=== PATIENT | male | born 1965 | race Caucasian/White ===

== ENCOUNTER 2016-10-05 11:13 | Emergency (ER) | payer OTHER ==
[2016-10-05 11:26] VITALS: TEMP 97.3; O2SAT 96
[2016-10-05] MEDS ORDERED: ONDANSETRON 4 MG/2 ML VIAL ONE (11:33)
--- NOTE | 2016-10-05 11:44 | CPEKG ---
Heart Rate: 36 RR Interval: 1667 P-R Interval: 228 QRSD Interval: 100 QT Interval: 504 QTC Interval: 390 P [place]: 60 QRS [place]: 33 T Wave [place]: 31 EKG Severity - ABNORMAL ECG - EKG Impression: SINUS BRADYCARDIA EKG Impression: FIRST DEGREE AV BLOCK Electronically Signed By: Sneha Hancock 06-Oct-2016 23:17:54
[2016-10-05 12:21] LABS: % IMMATURE GRANULYOCYTES 0.4 % (0.0-1.1); ABSOLUTE IMMATURE GRANULOCYTES 0.03 10^3/uL (0.00-0.10); ADD DIFF? NO; ADD MORPH? NO; ADD SCAN? NO; ATYPICAL LYMPHOCYTE FLAG 10 (0-99); FRAGMENT RBC FLAG 0 (0-99); HEMOGLOBIN 16.6 g/dL (13.7-17.5); LEFT SHIFT FLG 0 (0-99); LIPEMIA HEMOLYSIS FLAG 90 (0-99); MEAN CELL HEMOGLOBIN 32.5 pg (27.9-34.1); MEAN CELL HEMOGLOBIN CONCENTR. 36.1 g/dL (32.4-36.7); MEAN PLATELET VOLUME 10.6 fL (8.7-11.7); PLATELET CLUMPS FLAG 0 (0-99); PLATELET COUNT 215 10^3/uL (150-400); RED BLOOD CELL COUNT 5.11 10^6/uL (4.40-6.38); RED CELL DISTRIBUTION WIDTH 11.5 % (11.5-15.2)
[2016-10-05 12:28] LABS: ALANINE AMINOTRANSFERASE 40 IU/L (21-72); ALBUMIN 4.4 g/dL (3.5-5.0); ALKALINE PHOSPHATASE 78 IU/L (38-126); ANION GAP 9 mEq/L (8-16); ASPARTATE AMINOTRANSFERASE 28 IU/L (17-59); BILIRUBIN,TOTAL 0.8 mg/dL (0.1-1.4); BILIRUBIN-CONJUGATED 0.4 mg/dL (0.0-0.5); BILIRUBIN-UNCONJUGATED 0.4 mg/dL (0.0-1.1); CALCIUM 9.7 mg/dL (8.5-10.4); CARBON DIOXIDE 24 mEq/l (22-31); CHLORIDE 104 mEq/L (97-110); CREATININE 0.9 mg/dL (0.7-1.3); GLOMERULAR FILTRATION RATE > 60; GLUCOSE 113 mg/dL (70-100); POTASSIUM 3.8 mEq/L (3.5-5.2); SODIUM 137 mEq/L (134-144); TOTAL PROTEIN 7.1 g/dL (6.3-8.2)
--- NOTE | 2016-10-05 12:28 | EDPHY ---
General - History Smoking Status: Never smoked Time Seen by Provider: 10/05/16 12:07 Narrative: The patient was evaluated and managed by the physician's benefits assistant. My cosignature indicates that I reviewed the chart and I agree with the findings and plan of care as documented. I am the secondary supervising physician. I reviewed the patient's EKG and rhythm strips. It is noted the patient has bradycardia. The p.r.n. over is variable. This is especially probable in on rhythm strip. I discussed the plan with the PA. Cardiology has been consulted. (Sneha Hancock) CHIEF COMPLAINT: Abdominal pain HISTORY OF PRESENT ILLNESS: patient says he awoke this morning feeling fine, but had a sudden onset of left lower quadrant abdominal pain soon after waking. It was moderate to severe pain. Present for approximately an hour. Associated with sweating, nausea and dry heaving. No constipation or diarrhea. No pain elsewhere in the abdomen. It has improved but not resolved since onset. No fever or chills. No chest pain or shortness of breath. No dizziness or syncope. Had a colonoscopy in May that was reportedly normal without any diverticular polyps. No other associated complaints or modifying factors. No previous abdominal surgeries. 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 He reports no previous cardiac workup or cardiac diagnoses. REVIEW OF SYSTEMS: Ten systems reviewed and are negative unless otherwise noted in the HPI PERTINENT MEDICAL HISTORY: None EXAMINATION General Appearance: Alert, no distress Head: normocephalic, atraumatic Eyes: Pupils equal and round, no conjunctival pallor or injection ENT, Mouth: Mucous membranes moist. Uvula midline. No erythema edema. Neck: Normal inspection, supple, non-tender . No meningismus Respiratory: Lungs are clear to auscultation. No wheezing, rhonchi or crackles. Cardiovascular: Bradycardic rate with regular rhythm. Pulses intact distally and symmetrically Gastrointestinal: Abdomen is soft. Mild tenderness in left lower quadrant. No rebound. No guarding. No Rovsing. No tympany rigidity. No flank pain Nonacute abdomen Neurological: A&O, nonfocal, strength is symmetric in all limbs. Skin: Warm and dry, no rash Extremities: Nontender, no pedal edema Psychiatric: Mood and affect normal DIFFERENTIAL DIAGNOSES: Including but not limited to Diverticulitis, colitis, enteritis, renal colic , ureteral stone, junctional bradycardia, bradycardia, heart block MDM: 12:25 p.m. abdominal pain with associated nausea and diaphoresis earlier today. I feel that the complaints are unrelated. He is found to be in a junctional rhythm versus bradycardia. He has no chest pain of any kind but he is potentially been symptomatic from this and less likely from his abdominal pain. EKG shows the possibility of junctional rhythm versus sinus bradycardia. Will repeat EKG , monitor him and obtain abdominal and cardiac laboratory studies. 1:50 p.m. laboratory studies are within normal limits. Upon re-examination the patient, I feel he may actually have a kidney stone as he has had episodic pain with this on the left side and now mild in the left flank. Patient did not provide a urine sample via, thus will administer more fluid to get a urine sample. Renal function is normal. He has no white count. He is not vomiting. I suspect that if this is a stone, it is a small stone. Additionally I have discussed the Cardiac scenario with the on-call PA with [facility]. They will come see the patient in the emergency department for consultation soon 2:15 p.m. Patient is being evaluated by Cardiology in the department. Dr. Vance is at bedside. 4:15 p.m. urinalysis is consistent with ureteral or renal stone. The patient is resting comfortably with no pain at this time. Laboratory studies are within normal limits. There is no signs of infection in the urine. No white count. No fever. No nausea vomiting. No pain at this time. I suspected this is a small stone that has already made to the [facility]. I did offer CT scan but it do not feel that it is necessary at this time. We discussed CT scan versus discharge home with symptomatic care. We decided that there is no need to perform a CT scan at this time as his pain is 0. Additionally his creatinine is normal and he has no flank pain of any kind. Treated with Toradol here, discharged home with pain medication and nausea medication. He is to return to the ER immediately for any flank pain, fever, chills, nausea or vomiting. He is to increase his water intake today. Also provide a urology follow-up for him. He is comfortable with this plan. Regarding his bradycardia, he was evaluated by Cardiology here in the department. Dr. Vance personally evaluated him. He felt this was sinus bradycardia and potentially related to the abdominal pain as well. He recommended the patient be discharged home with follow up with the clinic outpatient. Patient has had no hypotension or symptoms related to the bradycardia since his admission to the emergency department or evaluation by Cardiology. SUPERVISION: Patient was evaluated in conjunction with the supervising physician. Please see their note for details. (Pablo Mueller) - Objective Vital Signs: Initial Vital Signs Temperature (C) 97.3 F 10/05/16 11:24 Heart Rate 38 L 10/05/16 11:24 Respiratory Rate 10/05/16 11:24 Blood Pressure 181/92 H 10/05/16 11:24 O2 Sat (%) 96 10/05/16 11:24 O2 Delivery Mode Room Air Allergies/Adverse Reactions: No Known Allergies Allergy (Unverified 10/05/16 11:24) Home Medications: Medication Instructions Recorded Ondansetron Odt [Zofran Odt 4 mg 4 mg PO Q6 PRN #12 tab 10/05/16 (*)] oxyCODONE HCL/ACETAMINOPHEN 1 each PO Q4-6PRN PRN #15 tablet 10/05/16 [Percocet 5-325 mg Tablet] Laboratory Results: Laboratory Results 10/05/16 11:38 10/05/16 11:38 10/05/16 10/05/16 10/05/16 15:30 11:38 11:38 WBC RBC Hgb Hct MCV MCH MCHC RDW Plt Count MPV Neut % (Auto) Lymph % (Auto) Real % (Auto) Eos % (Auto) Baso % (Auto) Nucleat RBC Rel Count Absolute Neuts (auto) Absolute Lymphs (auto) Absolute Monos (auto) Absolute Eos (auto) Absolute Basos (auto) Absolute Nucleated RBC Immature Gran % Immature Gran # PT 12.8 SEC SEC (12.0-15.0) INR 0.97 (0.83-1.16) APTT 28.1 SEC SEC (23.0-38.0) Sodium 137 mEq/L mEq/L (134-144) Potassium 3.8 mEq/L mEq/L (3.5-5.2) Chloride 104 mEq/L mEq/L (97-110) Carbon Dioxide 24 mEq/l mEq/l (22-31) Anion Gap 9 mEq/L mEq/L (8-16) BUN 18 mg/dL mg/dL (7-23) Creatinine 0.9 mg/dL mg/dL (0.7-1.3) Estimated GFR > 60 Glucose 113 mg/dL H mg/dL (70-100) Calcium 9.7 mg/dL mg/dL (8.5-10.4) Total Bilirubin 0.8 mg/dL mg/dL (0.1-1.4) Conjugated Bilirubin 0.4 mg/dL mg/dL (0.0-0.5) Unconjugated Bilirubin 0.4 mg/dL mg/dL (0.0-1.1) AST 28 IU/L IU/L (17-59) ALT 40 IU/L IU/L (21-72) Alkaline Phosphatase 78 IU/L IU/L (38-126) Troponin I Total Protein 7.1 g/dL g/dL (6.3-8.2) Albumin 4.4 g/dL g/dL (3.5-5.0) Lipase 128.0 IU/L IU/L (23-300) TSH Urine Color YELLOW Urine Appearance CLEAR Urine pH 6.0 (5.0-7.5) Ur Specific [place] 1.011 (1.002-1.030) Urine Protein NEGATIVE (NEGATIVE) Urine Ketones TRACE H (NEGATIVE) Urine Blood 3+ H (NEGATIVE) Urine Nitrate NEGATIVE (NEGATIVE) Urine Bilirubin NEGATIVE (NEGATIVE) Urine Urobilinogen NEGATIVE EU EU (0.2-1.0) Ur Leukocyte Esterase NEGATIVE (NEGATIVE) Urine RBC 50-182 /hpf H /hpf (0-3) Urine WBC 1-3 /hpf /hpf (0-3) Ur Epithelial Cells Not Reported Urine Bacteria TRACE /hpf H /hpf (NONE SEEN) Urine Mucus TRACE /lpf /lpf (NONE-1+) Ur Culture Indicated? NOT INDICATED (NI) Urine Glucose NEGATIVE (NEGATIVE) 10/05/16 10/05/16 11:38 11:10 WBC 7.87 10^3/uL 10^3/uL (3.80-9.50) RBC 5.11 10^6/uL 10^6/uL (4.40-6.38) Hgb 16.6 g/dL g/dL (13.7-17.5) Hct 46.0 % % (40.0-51.0) MCV 90.0 fL fL (81.5-99.8) MCH 32.5 pg pg (27.9-34.1) MCHC 36.1 g/dL g/dL (32.4-36.7) RDW 11.5 % % (11.5-15.2) Plt Count 215 10^3/uL 10^3/uL (150-400) MPV 10.6 fL fL (8.7-11.7) Neut % (Auto) 79.2 % H % (39.3-74.2) Lymph % (Auto) 10.2 % L % (15.0-45.0) Real % (Auto) 8.8 % % (4.5-13.0) Eos % (Auto) 0.8 % % (0.6-7.6) Baso % (Auto) 0.6 % % (0.3-1.7) Nucleat RBC Rel Count 0.0 % % (0.0-0.2) Absolute Neuts (auto) 6.24 10^3/uL 10^3/uL (1.70-6.50) Absolute Lymphs (auto) 0.80 10^3/uL L 10^3/uL (1.00-3.00) Absolute Monos (auto) 0.69 10^3/uL 10^3/uL (0.30-0.80) Absolute Eos (auto) 0.06 10^3/uL 10^3/uL (0.03-0.40) Absolute Basos (auto) 0.05 10^3/uL 10^3/uL (0.02-0.10) Absolute Nucleated RBC 0.00 10^3/uL 10^3/uL (0-0.01) Immature Gran % 0.4 % % (0.0-1.1) Immature Gran # 0.03 10^3/uL 10^3/uL (0.00-0.10) PT INR APTT Sodium Potassium Chloride Carbon Dioxide Anion Gap BUN Creatinine Estimated GFR Glucose Calcium Total Bilirubin Conjugated Bilirubin Unconjugated Bilirubin AST ALT Alkaline Phosphatase Troponin I < 0.012 ng/mL ng/mL (0-0.034) Total Protein Albumin Lipase TSH 1.640 uIU/mL uIU/mL (0.465-4.680) Urine Color Urine Appearance Urine pH Ur Specific [place] Urine Protein Urine Ketones Urine Blood Urine Nitrate Urine Bilirubin Urine Urobilinogen Ur Leukocyte Esterase Urine RBC Urine WBC Ur Epithelial Cells Urine Bacteria Urine Mucus Ur Culture Indicated? Urine Glucose Medications Given: Discontinued Medications Sodium Chloride (Ns) 1,000 mls @ 0 mls/hr IV ONCE ONE PRN Reason: Wide Open Stop: 10/05/16 14:06 Last Admin: 10/05/16 14:51 Dose: 1,000 mls Departure - Departure Disposition: Home, Routine, Self-Care Clinical Impression: Junctional (stephanie) bradycardia, Left lower quadrant abdominal pain of unknown etiology, Renal colic on left side Condition: Good Instructions: Renal Colic (ED), Bradycardia (ED) Additional Instructions: medications as discussed as needed. Return to the ER for worsening pain, fever , chills, nausea vomiting. Follow up with Cardiology outpatient at their recommendation. Referrals: Sofy Meek MD [Primary Care Provider] - As per Instructions Logan Vance MD [Medical Doctor] - As per Instructions Genaro Brenner MD [Medical Doctor] - As per Instructions Prescriptions: Ondansetron Odt [Zofran Odt 4 mg (*)] 4 mg PO Q6 PRN #12 tab PRN Reason: Nausea/Vomiting, Use 1st oxyCODONE HCL/ACETAMINOPHEN [Percocet 5-325 mg Tablet] 1 each PO Q4-6PRN PRN # 15 tablet PRN Reason: Pain, Breakthrough
[2016-10-05 12:38] LABS: INR 0.97 (0.83-1.16); PROTIME(PATIENT) 12.8 SEC (12.0-15.0)
--- NOTE | 2016-10-05 12:38 | CPEKG ---
Heart Rate: 42 RR Interval: 1429 P-R Interval: 196 QRSD Interval: 96 QT Interval: 496 QTC Interval: 415 P [place]: 74 QRS [place]: 29 T Wave [place]: 43 EKG Severity - OTHERWISE NORMAL ECG - EKG Impression: SINUS BRADYCARDIA Electronically Signed By: Sneha Hancock 05-Oct-2016 15:18:44
[2016-10-05 12:39] LABS: APTT 28.1 SEC (23.0-38.0)
[2016-10-05 13:21] LABS: TROPONIN I < 0.012 ng/mL (0-0.034)
[2016-10-05] MEDS ORDERED: NS 1,000 ML IV ONE (14:05)
--- NOTE | 2016-10-05 15:20 | GCON ---
[f rep st] CONSULTATION CONSULTATION. CHIEF COMPLAINT: Abdominal pain. REASON FOR CONSULT: Sinus bradycardia with occasional junctional rhythm. HISTORY: This is a 51-year-old patient with no past medical history. 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 When he woke up this morning he was feeling fine, but then had sudden onset of left lower quadrant abdominal pain soon after waking up which was rated as moderate to severe with episodes of 10/10 pain. This lasted for an hour and was associated with a cold clammy feeling, nausea and dry heaving. No light headedness, dizziness. No presyncope , syncope. No fever or chills. No chest pain or shortness of breath. Last colonoscopy in May 2016 noted to have diverticular polyps. He notes that he has had low heart rate since he was a child. No cardiac workup in the past. No cardiac history in the past. REVIEW OF SYSTEMS: Other than the above, negative. PAST MEDICAL HISTORY: None. MEDICATIONS: None. ALLERGIES: None. SOCIAL HISTORY: Avid bicyclist, participates in multiple endurance races. Nonsmoker, no significant alcohol use. PHYSICAL EXAMINATION: VITAL SIGNS: Blood pressure 113/80, pulse of 46, respiratory rate 16, saturations of 92%. HEENT: Pupils equal, reacting to light and accommodating. Head atraumatic, normocephalic. Moist mucous membranes. Uvula is midline. No erythema. CHEST: Good air entry bilaterally equal. No rales, rhonchi, rub. S1 and S2 regular. No S3, no murmurs. ABDOMEN : Soft, nontender. No guarding or rigidity. Bowel sounds present. EXTREMITIES: No edema. No clubbing. SKIN: Warm and dry. No rash. EXTREMITIES: Nontender, no pedal edema. EKG shows normal sinus rhythm with low heart rate. I ambulated the patient and with ambulation, the heart rate increased to 70 beats per minute appropriately and then dropped down to 52. When he was trying to get up on the bed it went up to 80 beats per minute. 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 Considering the fact that the patient has had no symptoms of sinus bradycardia prior to this and with bradycardia he has been able to do all his activities without any limitations and I was able to increase his heart rate appropriately with minimal exertion, I believe that he has a baseline sinus bradycardia due to being an endurance athlete and with nausea the vagal tone worsens bradycardia. However, considering that he has no symptoms related to this, I do not believe that he is a candidate for a pacemaker. He is on no AV stephanie blocking agents. No further cardiac workup is needed. I have advised the patient to call us if he has lightheaded, dizziness, presyncope or syncope. Thank you for letting us participate in the patient's care. Feel free to call us for questions. /[id number]/MODL MTDD
[2016-10-05 16:01] LABS: COLOR YELLOW; LEUKOCYTE ESTERASE,URINE NEGATIVE (NEGATIVE); NITRITE,URINE NEGATIVE (NEGATIVE)
[2016-10-05 16:04] LABS: BACTERIA TRACE /hpf (NONE SEEN); MUCUS TRACE /lpf (NONE-1+); RBC,URINE 50-182 /hpf (0-3)
[2016-10-05] MEDS ORDERED: KETOROLAC 30 MG/1 ML SDV IVP ONE (16:16)
[2016-10-05 16:36] VITALS: BP 123/59; PULSE 48; RESP 18
== END 2016-10-05 16:35 | disposition home or self-care (01) ==
DX: N23 Unspecified renal colic (principal); R00.1 Bradycardia, unspecified
CPT/HCPCS: J1885; J2405